=== PATIENT | male | born 1955 | race Two or more races ===

== ENCOUNTER 2021-07-30 06:47 | Inpatient (IN) | payer BC, OTHER ==
[~2021-07-30] VITALS: Ht 172.7 cm; Wt 59.9 kg
--- NOTE | 2021-07-30 06:59 | NUR ---
PT [id number]. R BACK AND R ANKLE PAIN S/P FELL BACKWARD AFTER GETTING OUT BALANCED. PT ALERT AND ORIENTED X3. AMBULATORY WITH NON LABORED BREATHING. PT PLACED IN BED ON MONITOR
[2021-07-30 07:37] LABS: CALCIUM, SERUM 8.3 mg/dL (8.5-10.1); CARBON DIOXIDE 26 mmol/L (21-32); CHLORIDE 107 mmol/L (98-107); CREATININE 1.3 mg/dL (0.6-1.3); GLUCOSE 90 mg/dL (74-106); POTASSIUM 4.2 mmol/L (3.5-5.1); SODIUM SERUM 141 mmol/L (136-145); UREA NITROGEN, BLOOD 18 mg/dL (7-18)
--- NOTE | 2021-07-30 07:42 | NUR ---
wheeled patient via gurney accompanied by [employer] to ct.
[2021-07-30 07:43] LABS: ACETAMINOPHEN < 0 ug/ml (10-30); ALANINE AMINOTRANSFERASE 17 U/L (12-78); ALBUMIN 3.2 g/dL (3.4-5.0); ALCOHOL, BLOOD < 3 mg/dL (0-0); ALKALINE PHOSPHATASE 96 U/L (46-116); ASPARTATE AMINOTRANSFERASE 18 U/L (15-37); BASOPHILS # (AUTO) 0.1 K/uL (0.0-0.2); BASOPHILS % (AUTO) 0.8 % (0.0-2.0); BILIRUBIN,DIRECT 0.1 mg/dL (0.0-0.2); BILIRUBIN,TOTAL 0.3 mg/dL (0.2-1.0); HEMATOCRIT 34 % (39-51); HEMOGLOBIN 10.6 g/dL (13.5-17.5); LYMPHOCYTES # (AUTO) 1.3 K/uL (0.8-4.8); LYMPHOCYTES % (AUTO) 18.5 % (20.0-44.0); MEAN CORPUSCULAR HGB CONC 31 g/dl (31.0-36.0); MEAN CORPUSCULAR VOLUME 85 fL (80-96); MONOCYTES # (AUTO) 0.6 K/uL (0.1-1.30); MONOCYTES % (AUTO) 8.6 % (2.0-12.0); NEUTROPHILS # (AUTO) 4.6 K/uL (1.8-8.9); NEUTROPHILS % (AUTO) 67.1 % (43.0-81.0); PLATELET COUNT (AUTO) 195 K/uL (150-450); RED BLOOD CELL COUNT(AUTO) 3.97 MIL/uL (4.5-6.0); TOTAL PROTEIN, SERUM 7.7 g/dL (6.4-8.2); WHITE BLOOD COUNT (AUTO) 6.8 K/uL (4.3-11.0)
--- NOTE | 2021-07-30 08:33 | NUR ---
covid swab collected and sent to lab.
--- NOTE | 2021-07-30 08:49 | NUR ---
CALLED [facility] AND PAGED DR. MALONEY.
[2021-07-30] MEDS ORDERED: NAPR-1009 PO (09:00)
--- NOTE | 2021-07-30 09:18 | NUR ---
CALLED NURSING AUTO HEADLIGHT MECHANIC FOR BED.
--- NOTE | 2021-07-30 11:30 | NUR ---
report given to Sim DAY for adia.
--- NOTE | 2021-07-30 11:37 | NUR ---
wheeled patient via gurney accompanied by RN and emt in no distress. RN assigned to patient at bedside to assume care.
--- NOTE | 2021-07-30 11:41 | NUR ---
RN NOTE Received patient from ER via jaimerney, awake-A/O X3 name, place and reason, with periods of disorientation. Chief complain of Ground level fall, pain 4-10 on right ankle and back. Right ankle with swelling noted, able to move extremities, able to self transfer from gurney to bed. Patient is not a good historian, unable to recall what medication he used to take. Denies any previous history. Skin check done noted with abrasions on lower extremities from fall. R AC IV heplock with no s/sx of infiltration. Safety precautions implemented, bed locked in lowest position, call light within reach.
--- NOTE | 2021-07-30 13:25 | NUR ---
RN NOTE Patient unable to provide history of medications or any medical diagnosis. [place]. He provided card from manager sharepoint Natalya Phipps [phone] and Warner Gordillo [phone]. Called both numbers, no answer left message. Dr. Singh at bedside aware.
[2021-07-30] MEDS ORDERED: ONDANSETRON HCL/PF 4 MG/2 ML VIAL IVP PRN (13:30)
[2021-07-30] MEDS ORDERED: Z GUARD REMEDY 2 OZ OINT TP PRN (13:30)
[2021-07-30] MEDS ORDERED: ZOLPIDEM TARTRATE 5 MG TABLET PO PRN (13:30)
[2021-07-30] MEDS ORDERED: MAG HYDROX/AL HYDROX/SIMETH 30 ML UDC PO PRN (13:30)
[2021-07-30] MEDS ORDERED: MAGNESIUM HYDROXIDE 30 ML UDC PO PRN (13:30)
[2021-07-30] MEDS ORDERED: ACETAMINOPHEN 325 MG TABLET PO PRN (13:30)
[2021-07-30] MEDS ORDERED: HYDROCODONE/APAP 5/325MG TABLET PO PRN (13:30)
[2021-07-30] MEDS: IV 1/2NS 1000 ML 1,000 ML IV PRN (13:56)
[2021-07-30] MEDS: ENOXAPARIN SODIUM 40 MG/0.4 ML DISP.SYRIN SQ SCH (13:57)
[2021-07-30 16:00] VITALS: BP 135/81
--- NOTE | 2021-07-30 17:00 | NUR ---
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 Security called, patient able to find documents on his belongings. Refuses IV insertion, offered 3x. paged.
--- NOTE | 2021-07-30 17:40 | NUR ---
RN NOTE Dr. Singh with order for Psych consult and bilateral wrist restraints. Noted and carried out.
--- NOTE | 2021-07-30 18:46 | NUR ---
RN CLOSING NOTE Patient is awake, alert and oriented x 3 with periods of disorientation. No respiratory distress, no SOB. Episodes of anger outbursts, able to ambulate. Refused IV insertion for IV hydration. Safety precautions implemented, bed locked in lowest position, call light within reach. Addendum: 07/30/21 at 1850 by NIKOS HUMPHRIES RN Confiscated hammer and hard metal lantern assisted by Security.
--- NOTE | 2021-07-30 19:29 | NUR ---
RN NOTE PT IS CURRENTLY REFUSING IV INSERTION. EDUCATED ON RISKS/BENEFITS, BUT STATING "MAYBE LATER".
--- NOTE | 2021-07-30 19:45 | NUR ---
RN NOTE PT RECEIVED IN BED. PT IS ON ROOM AIR SHOWING NO S/S OF RESP DISTRESS. BREATHING EVEN AND UNLABORED. PT IS A/OX3. ON TELE MONITOR SHOWING SB-NSR. ABLE TO AMBULATE WITH ASSISTANCE. PT PULLED OUT IV DURING DAY SHIFT AND WILL TRY TO RE-ATTEMPT LATER. ALL SAFETY MEASURES IMPLEMENTED. CALL LIGHT WITHIN REACH. BED ALARM ON. BED LOCKED AND IN LOWEST POSITION. WILL CONTINUE TO MONITOR AND ASSESS FOR ANY CHANGES.
[2021-07-30 20:00] VITALS: BP 122/78
[2021-07-31] VITALS: BP 122/78
--- NOTE | 2021-07-31 03:40 | NUR ---
RN NOTE PT LET ME RE-INSERT IV LINE. IV LINE INSERTED ON RIGHT HAND #20.
[2021-07-31] MEDS: IV 1/2NS 1000 ML 1,000 ML IV PRN (03:51)
[2021-07-31 04:00] VITALS: BP 117/70
--- NOTE | 2021-07-31 07:07 | NUR ---
RN NOTE NO CHANGES IN PT CONDITION DURING SHIFT. PT IS ON ROOM AIR SHOWING NO S/S OF RESP DISTRESS. BREATHING EVEN AND UNLABORED. PT IS A/OX3. ON TELE MONITOR SHOWING SB-NSR. IV ACCESS NOTED ON RIGHT HAND #20. LINE FLUSHED, PATENT, AND INTACT WITH NO SIGNS OF INFILTRATION. ALL DUE MEDS GIVEN ORDERED. PT KEPT CLEAN AND COMFORTABLE. ALL SAFETY MEASURES IMPLEMENTED. CALL LIGHT WITHIN REACH. BED ALARM ON. BED LOCKED AND IN LOWEST POSITION. WILL ENDORSE TO MORNING SHIFT RN FOR NEFTALI.
[2021-07-31] MEDS ORDERED: PANTOPRAZOLE 40 MG TABLET.DR PO SCH (07:30)
[2021-07-31 07:35] LABS: BASOPHILS % (AUTO) 0.4 % (0.0-2.0); EOSINOPHILS % (AUTO) 3.1 % (0.0-6.0); HEMATOCRIT 32 % (39-51); HEMOGLOBIN 10.4 g/dL (13.5-17.5); LYMPHOCYTES % (AUTO) 11.6 % (20.0-44.0); MEAN CORPUSCULAR HGB CONC 32 g/dl (31.0-36.0); MEAN CORPUSCULAR VOLUME 84 fL (80-96); MONOCYTES # (AUTO) 0.7 K/uL (0.1-1.30); MONOCYTES % (AUTO) 8.2 % (2.0-12.0); NEUTROPHILS # (AUTO) 6.8 K/uL (1.8-8.9); NEUTROPHILS % (AUTO) 76.7 % (43.0-81.0); PLATELET COUNT (AUTO) 190 K/uL (150-450); RED BLOOD CELL COUNT(AUTO) 3.81 MIL/uL (4.5-6.0); WHITE BLOOD COUNT (AUTO) 8.9 K/uL (4.3-11.0)
[2021-07-31 08:00] VITALS: BP 124/62
--- NOTE | 2021-07-31 08:00 | NUR ---
MANAGER AREA NOTE PATIENT IN BED , ALL NEEDS ATTENDED , ON TELE MONITOR HR 54 AT THIS TIME , REFUSED TO HAVE BREAKFAST, RT HAND HL INTACT ON IVF ORDERED ,ALERT ORIENTED X3 , CALL LIGHT WITHIN REACH , BED IN LOWEST AND LOCKED POSITION , WILL MONITOR
[2021-07-31 08:15] LABS: CALCIUM, SERUM 8.1 mg/dL (8.5-10.1); MAGNESIUM 1.8 mg/dL (1.8-2.4); PHOSPHORUS 2.6 mg/dL (2.5-4.9); POTASSIUM 4.1 mmol/L (3.5-5.1)
[2021-07-31 08:20] LABS: THYROID STIMULATING HORMONE 0.425 uIU/mL (0.358-3.74)
[2021-07-31] MEDS: ENOXAPARIN SODIUM 40 MG/0.4 ML DISP.SYRIN SQ SCH (09:17)
--- NOTE | 2021-07-31 11:30 | NUR ---
CHUCKING AND SAWING MACHINE OPERATOR NOTE BECOME VERY AGITATED AND VERBALLY ABUSIVE, DR DYKES AT BEDSIDE OK TO REMOVE TELE MONITOR AND HL AND O TO DISCHARGE , PATIENT HOMELESS BUT SAY HE LIVES WITH SOMEBODY ,CALLED HIS PROGRAMMER OPERATOR NUMERICAL CONTROL STATED THAT PATIENT NO MORE ON PROGRAM
--- NOTE | 2021-07-31 11:51 | NUR ---
PERSONNEL RECORDS CLERK NOTE REFUSED TO SIGNED DISCHARGE INSTRUCTION AND HOMELESS WAIVER
--- NOTE | 2021-07-31 12:10 | NUR ---
HEAD OF BUSINESS DEVELOPMENT NOTE CALLED RADAR TECHNICIAN FOR RECOURSE PAPER
--- NOTE | 2021-07-31 12:53 | NUR ---
"SS Consult: SS consult requested for homelessness. The pt. is a 66 year old male in [place] seeking medical Tx. for recent fall, with right ankle pain and back pain. SS me with pt. bedside. The pt. is A&OX 3 and appears disheveled. The pt. makes piercing eye contact and appears elated and restless. Pt.s mood is irritable with distressed affect. Pt. refused to continue with interview and asked that SW call Dust Collector from [facility] at [phone]. Pt. requested for additional belongings. SW discussed with nursing and pt. will be given those belongings upon exiting the premises. SW notified pt. SW offered homeless resources to pt. Pt. refused resources and refused to sign homeless waiver. SW notified nursing and they expressed understanding. Plan: Pt. verbalized that he did not need homeless resources as the lean six sigma senior specialist would be assisting him as needed. SW respected pt.s autonomy. SW will be available as needed. Resources offered include: Year-round shelters: [facility] [address] [place], [place] [id number] ; [facility] [address] [place] [address]; [facility] Yaeezhw[address] [facility] [address] Winter Shelters: Judith Louise Provider: K[facility]a [facility] [place] Address: [address] [place], [address] # of Beds: 47 Population Served: [facility] 6 | [facility] Elizabeth Lassiter [place] Provider: [facility] Address: [address], [address] # of Beds: 66 Population Served: [facility] [place] Provider: First to Serve Address: [address] [facility], [address] # of Beds: 56 Population Served: [facility] Vikas [place] Provider: /[facility] Address: [address] [facility], [address] # of Beds: 49 Population Served: [facility] 8 | [facility] Provider: First to Serve Address: [address] [place] [address] Fredy [address] # of Beds: 37 Population Served: [facility]: [facility]: [address]. [place] ; [facility] [address] [facility] ; [facility] [address], [place] . Food Resources: [place] [facility] at [facility]- [address] [place]; Meet Each Need with Dignity ([facility]) [address] [facility]. [place]; [facility] [address] [facility]; [facility] 4[address] [facility]. Mental Health resources provided: [facility] [address] [place], [place] [address] ; [facility] [address] [facility] [address], [place], [place] [id number] ; [facility] Mental [facility] [address] [facility] [place], [place] [phone] ; [facility] [address] [place], [place] [address] Healthcare Clinics: [facility] [address] [facility], [address] [place]. [place] ; [facility] [address] [facility] [address] [place] [address]; [facility] [place] [address] [facility]. [place] [phone] Counseling--Outpatient [facility] [address] [facility], [facility] [place] [address] (Specializes in in-depth psychotherapy for emotional distress: anxiety, depression, interpersonal conflicts, life transitions, childhood abuse) [facility] [address] [place], [place] [phone] (Assist with solving problem marital difficulties, separation & divorce, aging parents, & grief, chronic & terminal illness) [facility] [address] [place] [address] (Deal with loss & grief, anxiety, marital difficulties) Homebound/Mental Health Services [address] [place] [facility], [address] [place], [place] [address] (Provide in-home mental services to people who are incapable of leaving their homes) [facility] for Needs of the Elderly Senior Service/Resource Center [address] [place] [address] [facility] [address] [facility]. [place], [place] [phone] PSYCHIATRIC OUTPATIENT SERVICES [facility] Partial Hospitalization and Intensive Outpatient Program (Managed Care and [place] Only)[address] [address] [facility] [phone] [facility] Partial Hospitalization and Outpatient Tpbrubs[address] [place], [place] [phone] [facility] [place] Gkf[address] [facility]. [address] [place], [place] [phone] [facility] Partial Hospitalization and Outpatient Zaurnkk83523 [place], [phone] Substance Abuse resources provided included: [facility] Substance Abuse Self-Helpline ([facility]) ; CRI -HELP [address] [facility]. [place] [address] ; [facility] [place] [address] [facility] [address] ; [facility] [address] [address] [facility] [address] ; [facility]ically [facility] [address] [facility] [address] ; [facility] [address] [facility] [address] ; [facility] [address] [facility] [address] [facility] [phone] ; [facility] Substance Abuse Helpline(SAS)-[facility] ; [facility] Family Counseling ; [facility] [place]; [facility] [place]; C[facility]Help [place]; [facility] Asher [place]; [facility] [place]; [facility] [place]; [facility] [place]; [facility], [facility]. [place]; Alcoholics Anonymous -SFV; Ct-Pyyq-Iuiykuu ; Marijuana Anonymous -SFV; Narcotics Anonymous www.na.org;"
--- NOTE | 2021-07-31 13:00 | NUR ---
GENERAL ACCOUNTING MANAGER NOTE STRONGLY REFUSED TO TAKE ANY PAPER FORM FROM MERCHANDISING REPRESENTATIVE AND DISCHARGE INSTRUCTION AND HOMELESS WAIVER,DESPITE EXPLANATION, SECURITY AT BEDSIDE, ALSO REFUSED TO SIGNED AND CHECKED BELONGING LIST
--- NOTE | 2021-07-31 13:15 | NUR ---
MERCHANDISE BUYER NOTE SECURITY AND CHARGE NURSE AT BEDSIDE, ASSISTED PATIENT WALKING OUT OF HOSPITAL ON W\C WILL TO LOBBY , USE BUS , TELE REMOVED , IC HL REMOVED DRY DRESSING APPLIED NO BLEEDING NOTED , PATIENT IS HOMELESS BUT SAYING THAT LIVES WITH SOME BODY,LEFT HOSPITAL WITH STABLE CONDITION
== END 2021-07-31 13:23 | disposition home or self-care (01) | DRG 563 ==
LOC: ER 06:51 → TELE1 11:11
PROVIDERS: ATTEND Nurse Practitioner Acute Care
DX: S93.401A Sprain of unspecified ligament of right ankle, initial encounter (principal); S33.5XXA Sprain of ligaments of lumbar spine, initial encounter; D64.9 Anemia, unspecified; Z59.00 Homelessness unspecified; Y92.9 Unspecified place or not applicable; Z20.822 Contact with and (suspected) exposure to COVID-19; W10.0XXA Fall (on)(from) escalator, initial encounter; F29 Unspecified psychosis not due to a substance or known physiological condition
CPT/HCPCS: 36415; 70450-TC; 71045-TC; 80048-TC; 80061-TC; 80076-TC; 83735-TC; 83880; 84100-TC; 84443-TC; 84484-TC; 85025-TC; 87081-TC; 97112-TC; 97116-TC; 97530-TC; G0378; G0480; J1650; J3490; U0003